=== PATIENT | female | born 1980 ===

== ENCOUNTER 2022-02-07 07:02 | Day surgery (SDC) | payer OTHER ==
[2022-02-06 12:12] LABS: Absolute Lymphocytes (CBC) 2.4 K/uL (0.7-4.9); Hematocrit 40.2 % (36.0-45.0); Lymphocytes % 30.2 % (15.3-44.8); RBC Red Blood Cell Count 4.37 M/uL (3.86-4.86)
[2022-02-06 12:29] LABS: ALT/SGPT 18 U/L (12-78); AST/SGOT 14 U/L (15-37); Albumin 3.8 g/dL (3.4-5.0); Alkaline Phosphatase 107 U/L (45-117); Amylase 50 U/L (25-115); BUN Blood Urea Nitrogen 10 mg/dL (7-18); Bicarbonate 27 mmol/L (21-32); Bilirubin Total 0.2 mg/dL (0.2-1.0); Glucose Level 95 mg/dL (74-106); Lipase 210 U/L (73-393); Potassium 3.8 mmol/L (3.5-5.1); Protein, Total 7.6 g/dL (6.4-8.2); Sodium Level 138 mmol/L (136-145)
[2022-02-06 12:30] LABS: Bilirubin Direct < 0.1 mg/dL (0-0.2)
--- NOTE | 2022-02-06 12:36 | RAD REPORT ---
EXAM DESCRIPTION: RAD - Chest Pa And Lat (2 Views) - 02/06/2022 12:16 pm CLINICAL HISTORY: Pre op pending cholecystectomy COMPARISON: None TECHNIQUE: Frontal and lateral views of the chest were obtained. FINDINGS: The lungs are clear. Heart size is normal and central vasculature is within normal limit s. No pleural effusion or pneumothorax seen. No acute bony finding noted. No aortic abnormality. IMPRESSION: No acute cardiopulmonary process.
[2022-02-07] MEDS ORDERED: NA CHLORIDE 0.9% 50 ML ONE (07:19)
[2022-02-07] MEDS ORDERED: Ringers Lactate 1,000 ML IV ONE (07:19)
[2022-02-07] MEDS ORDERED: SCOPOLAMINE HYDROBROMIDE PATCH TD ONE (08:04)
[2022-02-07] MEDS: CEFOXITIN SODIUM 1 GM/VIAL ONE ×2 (08:12→08:50)
[2022-02-07] MEDS ORDERED: FENTANYL CITR 100 MCG/2 ML ONE (08:38)
[2022-02-07] MEDS ORDERED: propofoL 200 MG/20 ML VIAL IV ONE ×2 (08:38→08:48)
[2022-02-07] MEDS ORDERED: ROCURONIUM 50 MG/5 ML VIAL IV ONE (08:38)
[2022-02-07] MEDS ORDERED: LIDOCAINE 1% MPF 5 ML VIAL ONE (08:39)
[2022-02-07] MEDS ORDERED: MIDAZOLAM HCL 2 MG/2 ML INJ ONE (08:39)
[2022-02-07] MEDS ORDERED: dexAMETHasone 10 MG/ML VIAL ONE (09:06)
[2022-02-07] MEDS ORDERED: KETOROLAC 30 MG/ML INJ ONE (09:06)
[2022-02-07] MEDS ORDERED: ONDANSETRON 4 MG/2 ML VIAL ONE (09:07)
[2022-02-07] MEDS ORDERED: GLYCOPYRROLATE 0.2 MG/ML SYR ONE (09:28)
[2022-02-07] MEDS ORDERED: NEOSTIGMINE 1 MG/ML -5 ML ONE (09:28)
--- NOTE | 2022-02-07 09:47 | P.BOP ---
Preoperative diagnosis: Acute cholecystitis, symptomatic cholelithiasis Postoperative diagnosis: same Primary procedure: Laparoscopic cholecystectomy Framework Developer: ORLANDO ZAVALETA ([employer]) Estimated blood loss: <10cc Specimen: gb Findings: as elisa Anesthesia: General Complications: None Transferred to: Recovery Room Condition: Good
[2022-02-07 11:07] VITALS: BP 114/72; TEMP 97.6; O2SAT 100
--- NOTE | 2022-02-07 12:59 | EKG ---
Test Date: 2022-02-06 Test Time: 10:57:20 Traffic Control Flagger: LOKESH MEASUREMENT RESULTS: Intervals: Rate: 80 MD: 140 QRSD: 96 QT: 358 QTc: 412 Ellis: P: 35 MD: 140 QRS: 56 T: 35 INTERPRETIVE STATEMENTS: Normal sinus rhythm Normal ECG No previous ECG available for comparison Electronically Signed On 02-07-22 12:57:35 CDT by Palomo Gagnon
--- NOTE | 2022-02-07 21:45 | OP ---
Date of Procedure: 02/07/2022 Surgeon: Rd Thomas MD Reproductive Surgeon: REDD Eisenberg. Preoperative Diagnoses: Acute cholecystitis, symptomatic cholelithiasis. Postoperative Diagnoses: Acute cholecystitis, symptomatic cholelithiasis. Procedure: Laparoscopic cholecystectomy. Estimated Blood Loss: Less than 10 mL. Specimen: Gallbladder. Anesthesia: General plus local. Finding: Acute cholecystitis, symptomatic cholelithiasis. Indications: This is a case of a female, who comes to us with above diagnosis, fully explained the b enefits, alternatives, and risks including, but not limited to laparoscopic possible open cholecystec carson, which include, but not limited to infection, bleeding, damage to adjacent structures, anesthesi a complication, choledocholithiasis, bile leak, pancreatitis, NC, and even . Patient understand s this may not relieve the symptoms. She might need more than one surgical intervention. She unders tood, signed a consent. Description Of Procedure: The patient was brought to the operating room, placed in supine position. Anesthesia was done without complication. Abdominal area was prepped and draped in the usual sterile fashion. Marcaine 0.5% was injected for local anesthetic, followed by sharp incision of the skin in the infraumbilical region. Incision was carried down to fascia, which was opened under direct visio n. Peritoneum was encountered, opened under direct vision. Vicryl #1 placed inside the fascia. Has son trocar was carefully introduced. Pneumoperitoneum was obtained. I placed 3 more trocars, 5 mm e ach one of them, 1 in epigastric area and 2 in the right upper quadrant under direct visualization. This allowed me to put a grasper in the fundus of the gallbladder, another grasper in the infundibulu m, retracting the gallbladder in the inferolateral fashion, exposing the triangle of Calot obtaining critical view. Cystic duct and cystic artery were clearly isolated and freed circumferentially and a connection between those and the gallbladder was clearly identified. I proceeded to ligate those by using at least 3 clips proximal, 1 clip distal, ligation in middle. Same was done with the cystic a rtery. No bile leak. No bleeding. The gallbladder was removed from liver using Bovie cauterization and removed from abdominal cavity using EndoCatch through the umbilical incision. There was inspect ed once again no bile leak, no bleeding. At that moment, I proceeded to remove the trocars under dir ect vision. Deflated pneumoperitoneum, closed the fascia with #1 Vicryl, irrigated subcutaneous tiss ue, closed that with 3-0 chromic and skin in a subcuticular fashion with 3-0 chromic and Steri-Strips on top. Sponge count and instrument counts correct. Patient tolerated the procedure well. Patient was sent to recovery in stable condition. DISCHARGE SUMMARY Diagnoses: Acute cholecystitis, symptomatic cholelithiasis. Procedure: Laparoscopic cholecystectomy. Disposition: Home. Activity: As tolerated. No heavy lifting. Follow up in my office in 1 week, call for appointment [phone]. Keep area dry for 48 hours and then may shower. Keep Steri-Strip intact. Discharge Medications: Medications include Ultracet q.4 hours p.r.n. pain, bactrim DS p.o. b.i.d.. CHIDI/BRENDA Voice ID: [id number] Report ID: [id number]
== END 2022-02-07 10:57 | disposition home or self-care (01) ==
LOC: OR 07:02
PROVIDERS: ATTEND Surgery
PROC: 0FT44ZZ Resection of Gallbladder, Percutaneous Endoscopic Approach (ICD-10-PCS; principal; 2022-02-07 08:15)
DX: K80.10 Calculus of gallbladder with chronic cholecystitis without obstruction (principal); E03.9 Hypothyroidism, unspecified; K21.9 Gastro-esophageal reflux disease without esophagitis; F90.9 Attention-deficit hyperactivity disorder, unspecified type; Z20.822 Contact with and (suspected) exposure to COVID-19
CPT/HCPCS: 93005; 85025; 80048; 36415; 82150; 80076; 88304; 83690; 71046; 47562; U0003; J2704; J2250; J3010; J1100; J2710; J7120; J0694; J2405